=== PATIENT | female | born 1935 | race Caucasian/White ===

== ENCOUNTER 2018-02-17 09:09 | Inpatient (IN) | payer MEDICARE, MEDICAID ==
[2018-02-17] MEDS ORDERED: Albuterol Sulfate 2.5 mg/0.5 ml Neb ONE (09:31)
[2018-02-17] MEDS ORDERED: Albuterol Sulfate 2.5 mg/3 ml Neb ONE (09:31)
[2018-02-17 09:45] LABS: #Lymphocytes 1.7 thou/uL (1.20-3.40); #Monocytes 0.8 thou/uL (0.11-0.59); #Neutrophils 10.4 thou/uL (1.40-6.50); %Basophils 0.1 % (0.0-1.0); %Eosinophils 0.1 % (0.0-10.0); %Lymphocytes 13.4 % (21.0-51.0); %Neutrophils 80.5 % (42.0-75.0); Mean Corpuscular HGB CONC 32.4 g/dL (32.0-36.0); Mean Corpuscular Hemoglobin 27.5 pg (27.0-31.0); Mean Corpuscular Volume 84.7 fL (78.0-98.0); Mean Platelet Volume 6.4 fL (7.4-10.4); Platelet Count 261 thou/uL (130-400); Red Blood Cell (RBC) Count 4.74 mill/uL (4.20-5.40); White Blood Cell (WBC) Count 12.9 thou/uL (4.8-10.8)
[2018-02-17 10:08] LABS: ALT (SGPT) 11 U/L (8-55); AST (SGOT) 17 U/L (5-34); Albumin 4.2 g/dL (3.4-4.8); Alkaline Phosphatase 97 U/L (40-150); Anion Gap 17 mmol/L (10-20); BUN (Urea Nitrogen) 17 mg/dL (9.8-20.1); Bilirubin, Total 0.5 mg/dL (0.2-1.2); Calc. Creatinine Clearance 0 mL/min (70-130); Calcium 9.6 mg/dL (7.8-10.44); Carbon Dioxide 26 mmol/L (23-31); Chloride 100 mmol/L (98-107); Estimated GFR-MDRD 48; Globulin 3.5 g/dL (2.4-3.5); Glucose 129 mg/dL (83-110); Potassium 4.4 mmol/L (3.5-5.1); Protein, Total 7.7 g/dL (6.0-8.3); Sodium 139 mmol/L (136-145)
[2018-02-17 10:24] LABS: Bilirubin Negative (Negative); Blood, Urine Small (Negative); Clarity TURBID (Clear); Glucose, Urine (Dipstick) Negative (Negative); Leukocyte Large (Negative); Nitrite Positive (Negative); Protein, Urine (Dipstick) 30 mg/dL (Neg-Trace); Specific Gravity, Urine 1.014 (1.002-1.036); Urobilinogen 0.2 mg/dL (0.2-1.0)
[2018-02-17 10:25] LABS: Bacteria/HPF 1+ HPF (None Seen); Hyaline Casts/LPF 0-3 HYALINE CAST LPF (0-3 Hyaline); Squamous Epithelial None Seen HPF (0-3)
--- NOTE | 2018-02-17 11:52 | RAD ---
CHEST 1 VIEW: Date: 02/17/18 HISTORY: Weakness and low O2 sats. COMPARISON: Chest radiograph dated 12/12/14. FINDINGS: There are air space opacities in both lower lobes, somewhat linear in nature. No pneumothorax. Mild b lunting of both lateral costophrenic sulci, likely sequelae of the linear markings in both lung bases . Cardiac silhouette and mediastinal contours are within normal limits. Multiple calcified granulomas. IMPRESSION: Linear opacities both lower lobes suggesting atelectatic change. No acute intrathoracic abnormality. POS: [facility]
[2018-02-17] MEDS ORDERED: cefTRIAXone\\ROCEPHIN 1 GM VIAL ONE (12:34)
[2018-02-18] MEDS: Acetaminophen 325 MG TAB PO PRN (05:58)
[2018-02-18 06:44] LABS: #Lymphocytes 1.5 thou/uL (1.20-3.40); #Monocytes 0.7 thou/uL (0.11-0.59); #Neutrophils 9.7 thou/uL (1.40-6.50); %Basophils 0.1 % (0.0-1.0); %Eosinophils 0.1 % (0.0-10.0); %Lymphocytes 12.5 % (21.0-51.0); %Monocytes 5.8 % (0.0-10.0); %Neutrophils 81.5 % (42.0-75.0); Hemoglobin 11.5 g/dL (12.0-16.0); Mean Corpuscular HGB CONC 31.3 g/dL (32.0-36.0); Mean Corpuscular Hemoglobin 26.8 pg (27.0-31.0); Mean Corpuscular Volume 85.7 fL (78.0-98.0); Platelet Count 235 thou/uL (130-400); RBC Distribution Width 12.1 % (11.5-14.5); White Blood Cell (WBC) Count 11.9 thou/uL (4.8-10.8)
[2018-02-18] MEDS ORDERED: Ibuprofen 200 MG TAB PO PRN (06:48)
[2018-02-18] MEDS ORDERED: Acetaminophen 325 MG TAB PO PRN (06:48)
[2018-02-18 06:53] LABS: Anion Gap 15 mmol/L (10-20); BUN (Urea Nitrogen) 16 mg/dL (9.8-20.1); Calc. Creatinine Clearance 41 mL/min (70-130); Carbon Dioxide 24 mmol/L (23-31); Chloride 101 mmol/L (98-107); Estimated GFR-MDRD 63; Glucose 72 mg/dL (83-110); Potassium 4.3 mmol/L (3.5-5.1); Sodium 136 mmol/L (136-145)
[2018-02-18] MEDS ORDERED: HYDROXYZINE HCL 25 MG PO SCH (09:00)
[2018-02-18] MEDS ORDERED: Amlodipine 10 MG TAB PO SCH (09:00)
[2018-02-18] MEDS ORDERED: Spiriva 18 MCG CAP (Box of 5 Caps) INH SCH (09:00)
[2018-02-18] MEDS ORDERED: Prevnar 13-Val Conj/PF 0.5 ML SYRINGE IM ONE (09:00)
[2018-02-18] MEDS: Montelukast Sodium 10 mg Tablet PO SCH (09:01)
[2018-02-18] MEDS: guaiFENesin ER 600 MG TAB PO SCH ×2 (09:02→20:13)
[2018-02-18] MEDS: Amlodipine 5 MG TAB PO SCH (09:03)
[2018-02-18] MEDS: hydrOXYzine 25 MG TAB PO SCH (09:04)
[2018-02-18] MEDS: OLANZapine 5 MG TAB PO SCH (09:09)
[2018-02-18] MEDS: Enoxaparin Sodium 30 MG/0.3 ML SYRINGE SC SCH (09:12)
[2018-02-18] MEDS: Donepezil HCl 5 MG TAB PO SCH (09:16)
[2018-02-18] MEDS ORDERED: PROVENTIL INHALER 6.7 G (200 INHALATIONS) INH PRN (10:37)
[2018-02-18] MEDS: Ipratropium Bromide 2.5 ml Neb NEB SCH ×2 (11:07→17:21)
--- NOTE | 2018-02-18 12:48 | PDOC.PN ---
- Subjective Encounter Start Date: 02/18/18 Encounter Start Time: 10:40 Patient denies complaint. Daughter is in the room. She indicates patient is typically more conversant. Not back to baseline yet. Reports the patient has had a slight, wet cough. - Objective Resuscitation Status - Order Detail: 02/17/18 13:53 Resuscitation Status Routine Resuscitation Status: FULL: Full Resuscitation Vital Signs & Weight: Vital Signs (12 hours) Temp Pulse Resp BP BP Pulse Ox 02/18/18 11:07 83 16 92 L 02/18/18 11:00 97.4 F L 78 18 130/69 90 L 02/18/18 09:03 83 123/72 02/18/18 07:27 98.5 F 83 18 123/72 92 L 02/18/18 04:00 100.4 F H 93 18 137/68 93 L Weight Weight 113 lb 9 oz I&O: 02/17/18 02/18/18 02/19/18 06:59 06:59 06:59 Intake Total 120 Balance 120 Result Diagrams: 02/18/18 05:45 02/18/18 05:45 Phys Exam - Physical Examination Constitutional: NAD Respiratory: no wheezing, no rales, no rhonchi, clear to auscultation bilateral Cardiovascular: RRR, no significant murmur, no rub Gastrointestinal: soft, non-tender, no distention, positive bowel sounds Musculoskeletal: no edema Neurological: non-focal Dx/Plan (1) E. coli UTI Code(s): N39.0 - URINARY TRACT INFECTION, SITE NOT SPECIFIED; B96.20 - UNSP ESCHERICHIA COLI THE CAUSE OF DISEASES CLASSD ELSWHR Status: Acute Comment: Continue Rocephin. Follow up cultures. (2) Acute metabolic encephalopathy Code(s): G93.41 - METABOLIC ENCEPHALOPATHY Status: Acute Comment: Secondary to infection. (3) Acute and chronic respiratory failure with hypoxia Code(s): J96.21 - ACUTE AND CHRONIC RESPIRATORY FAILURE WITH HYPOXIA Status: Resolved (4) COPD (chronic obstructive pulmonary disease) Status: Chronic Comment: Continue nebs. Has modest cough. No evidence of pneumonia. Mild atelectasis on CXR. (5) Dementia Code(s): F03.90 - UNSPECIFIED DEMENTIA WITHOUT BEHAVIORAL DISTURBANCE Status: Chronic (6) HTN (hypertension) Code(s): I10 - ESSENTIAL (PRIMARY) HYPERTENSION Status: Chronic - Plan * Continue abx and follow up cultures. * Add mucinex for cough. * Determine course of treatment tomorrow when culture results known. * Continue nebs, inhalers. * Does not appear to need steroids.
--- NOTE | 2018-02-18 13:20 | HP ---
CHIEF COMPLAINT: Weak and dizzy. HISTORY OF PRESENT ILLNESS: This patient is an 82-year-old female with a history of dementia who lives at the [facility]. The patient has a history of some COPD and is oxygen dependent. The patient was brought into the Emergency Department by EMS. Apparently, the patient was showing some weakness and apparently maybe some lethargy at the nursing facility and was noted to have hypoxia with O2 sats at 88% to 89% on evaluation by EMS. The patient was subsequently brought to the Emergency Department. En route, she was noted to have a temperature of 100.9 and was given some Tylenol at that time. The patient is unable to give any additional history. REVIEW OF SYSTEMS: Not obtainable given the patient's dementia. PAST MEDICAL HISTORY: Notable for COPD, Alzheimer's dementia, hypertension, irritable bowel syndrome, and hyperlipidemia. PAST SURGICAL HISTORY: Lap jelly, wrist surgery, and bilateral tubal ligation. PSYCHIATRIC HISTORY: Anxiety, depression. FAMILY HISTORY: Not known. SOCIAL HISTORY: The patient is a nonsmoker, nondrinker. Records indicated next of kin is the child. ALLERGIES: HAZELNUTS, PENICILLIN. MEDICATIONS: DuoNeb, guaifenesin, albuterol, Spiriva, Breo Ellipta, hydroxyzine 50 mg daily p.r.n., Zyprexa 5 mg daily, vitamin C 500 mg daily, multivitamin one daily, aspirin 81 mg daily, montelukast 10 mg daily, hydroxyzine 25 mg daily, donepezil 10 mg daily, amlodipine 5 mg daily, simvastatin 20 mg at bedtime, Zoloft 150 daily, and Namenda 10 mg p.o. b.i.d. PHYSICAL EXAMINATION: VITAL SIGNS: Temperature is 99.2, pulse 77, respirations 16, O2 saturation 93% on 2 L nasal cannula, and BP 144/64. GENERAL APPEARANCE: Age-appropriate female. She is in no distress. She is confused and unable to give any significant subjective history. HEENT: Pupils are reactive. She has no OP lesions. HEART: Regular rate and rhythm without murmurs, gallops, or rubs. LUNGS: Clear to auscultation bilaterally with good chest wall expansion and air exchange. NECK: Soft, supple, symmetric with no lymphadenopathy. ABDOMEN: Soft, nontender, and nondistended. Positive bowel sounds. No masses. No organomegaly. EXTREMITIES: Warm and dry with no cyanosis, clubbing, or edema. NEUROLOGIC: The patient appears to move all extremities spontaneously with no focal deficits. PSYCH: The patient has no behavioral disturbance at this time. LABORATORY DATA: White count 12.9, hemoglobin 13.0, and platelets 261. Sodium 139, potassium 4.4, chloride 100, CO2 is 26, BUN 17, creatinine is 1.09, glucose 129, lactic acid 1.2, calcium 9.6, AST 17, ALT 11. Troponin 0.01. Albumin 4.2. Urinalysis shows trace ketones, small blood, positive nitrites, large leukocyte esterase, greater than 50 white cells, 1+ bacteria. Flu screen is negative. Chest x-ray shows some atelectatic changes in both lower lobes. IMPRESSION AND PLAN: 1. Acute on chronic hypoxic respiratory failure likely due to the underlying infection. The patient has had increased supplemental oxygen, appears to be stabilizing. 2. Urinary tract infection. Follow up cultures. Continue with broad-spectrum antibiotic including, at this point, Rocephin. 3. Chronic obstructive pulmonary disease. We will continue with nebulizer treatments and inhalers as possible along with the montelukast. 4. Alzheimer's dementia. Continue with the Namenda and Aricept, although it is probably too late for them to be terribly helpful in the course of her disease. 5. Hypertension. Continue with her Norvasc. 6. Hyperlipidemia. Continue with the simvastatin. Job ID: [id number]
[2018-02-18] MEDS: cefTRIAXone\\ROCEPHIN 1 GM in Sodium Chloride 0.9% 100 ML IVPB SCH (13:46)
[2018-02-18] MEDS: Atorvastatin Calcium 10 MG TAB PO SCH (20:13)
[2018-02-18] MEDS: guaiFENesin 200 MG TAB PO SCH (20:13)
[2018-02-18] MEDS ORDERED: Simvastatin 20 MG TAB PO SCH (21:00)
[2018-02-19] MEDS: Acetaminophen 325 MG TAB PO PRN (01:35)
[2018-02-19] MEDS: Ipratropium Bromide 2.5 ml Neb NEB SCH ×5 (02:18→23:58)
[2018-02-19] MEDS: Donepezil HCl 5 MG TAB PO SCH (09:16)
[2018-02-19] MEDS: Montelukast Sodium 10 mg Tablet PO SCH (09:17)
[2018-02-19] MEDS: hydrOXYzine 25 MG TAB PO SCH (09:19)
[2018-02-19] MEDS: Amlodipine 5 MG TAB PO SCH (09:19)
[2018-02-19] MEDS: guaiFENesin ER 600 MG TAB PO SCH ×2 (09:19→19:52)
[2018-02-19] MEDS: Enoxaparin Sodium 30 MG/0.3 ML SYRINGE SC SCH (09:27)
[2018-02-19] MEDS: OLANZapine 5 MG TAB PO SCH ×2 (09:27→19:52)
[2018-02-19] MEDS: guaiFENesin 200 MG TAB PO SCH ×2 (10:07→19:52)
[2018-02-19] MEDS: cefTRIAXone\\ROCEPHIN 1 GM in Sodium Chloride 0.9% 100 ML IVPB SCH (12:01)
--- NOTE | 2018-02-19 16:05 | RAD ---
CHSET ONE VIEW: HISTORY: Cough and fever. COMPARISON: Radiograph from 02/17/2018 FINDINGS: The lungs are hyperinflated. No pneumothorax. No effusion. There are multiple mid thoracic spine small compression deformities. IMPRESSION: 1. Chronic changes. 2. No acute intrathoracic abnormality. 3. No obstructive pulmonary disease. POS: [facility]
--- NOTE | 2018-02-19 16:07 | CT ---
CT ABDOMEN AND PELVIS WITHOUT CONTRAST STONE PROTOCOL: Date: 02/19/18 HISTORY: Abnormal urinalysis, fever, dementia. COMPARISON: CT abdomen and pelvis dated 12/13/15. FINDINGS: There are some subtle left basilar air space opacities, concerning for possible infection. There is a telectasis in the left lower lobe. Small left effusion. No hydroureteronephrosis or nephroureterolithiasis. No secondary evidence of a recently passed stone. No dilated loops of large or small bowel. Moderate diverticular disease sigmoid colon without active current inflammation. Noncontrast evaluation of the liver, spleen, and adrenal glands are relatively unremarkable. Prior ch olecystectomy. Aorta is mildly ectatic without aneurysmal dilatation. Bones are osteopenic. Moderate dextroscoliosis lumbar spine. IMPRESSION: 1. No nephroureterolithiasis or hydroureteronephrosis. No secondary evidence of recently passed ston e. 2. Some small left effusion with basilar opacity, concerning for early bronchopneumonia. 3. Possibility of left pelvic side wall lymphocele. POS: [facility]
--- NOTE | 2018-02-19 16:26 | PRG ---
DATE OF SERVICE: 02/19/2018 SUBJECTIVE: The patient states she does not feel too badly today. She has no specific complaints. OBJECTIVE: VITAL SIGNS: Temperature 97.8, pulse 75, respirations 18, O2 saturation 94% on 2 L nasal cannula, BP 106/62. GENERAL APPEARANCE: Age-appropriate female, in no distress. She is awake, alert, oriented, pleasant, and cooperative. HEART: Regular without significant murmurs. LUNGS: Slightly diminished at the bases, but otherwise clear to auscultation bilaterally. ABDOMEN: Soft, nontender, and nondistended. Positive bowel sounds. No masses. No organomegaly. EXTREMITIES: Warm and dry with no cyanosis, clubbing, or edema. LABORATORY DATA: Urine culture is growing E coli. IMPRESSION AND PLAN: 1. Urinary tract infection with Escherichia coli. Do not seem to be many good p.o. options. We will go ahead and consult Dr. Hein to see if how aggressive we need to be in pursuing this with IV antibiotics. 2. Acute metabolic encephalopathy, appears to be improving, likely secondary to the urinary tract infection. 3. Acute on chronic respiratory hypoxic failure. She continues to have some low saturations on room air down to 89%. She does have some chronic obstructive pulmonary disease. She looks quite comfortable with this, this may be her baseline. We will get the walking program to get her up and moving. 4. Chronic obstructive pulmonary disease, chronic, relatively stable. Continue bronchodilators. 5. Dementia, modest, chronic, stable. 6. Hypertension, chronic, stable. Continue with her usual home medications. Job ID: [id number]
[2018-02-19] MEDS: Atorvastatin Calcium 10 MG TAB PO SCH (19:52)
--- NOTE | 2018-02-19 21:42 | CON ---
DATE OF CONSULTATION: 02/19/2018 REASON FOR CONSULTATION: Possible UTI. HISTORY OF PRESENT ILLNESS: This is an 82-year-old female with history of COPD and dementia, who is a resident of a group home, who was admitted with lethargy, hypoxemia, and low-grade temperature elevation with [id number] neutrophilia and abnormal urinalysis. The patient has been given inhalers, ceftriaxone, enoxaparin, has had one temperature elevation of 100.4, but now she has been afebrile of late. Ms. Gan is awake, but she is unable to provide a reliable information. According to the nurse, she has had no diarrhea and no pain. She has been coughing intermittently and during the examination, she had quite a few episodes of coughing spells, which were productive of moderate amount of light yellowish sputum. PAST MEDICAL HISTORY: Includes dementia, COPD, hypertension, irritable bowel syndrome, and hyperlipidemia. PAST SURGICAL HISTORY: Laparoscopic cholecystectomy, wrist surgery, and tubal ligation. FAMILY HISTORY: Noncontributory. SOCIAL HISTORY: Never smoker. [facility] resident. ALLERGIES: PENICILLIN WITH RASH, NOT VERY CLEAR CHARACTERIZATION OF THIS ALLERGY. CURRENT MEDICATIONS: Have been reviewed above. She is also on Namenda and Singulair. PHYSICAL EXAMINATION: VITAL SIGNS: T-max 100.4 and now she has kind of defervesced since yesterday. Other vital signs not remarkable. O2 saturations are 94% on 2 L nasal cannula. SKIN: Not remarkable. The patient has a peripheral IV access. She is voiding in the toilet at bedside. HEENT: No lymphadenopathy. Ocular movements conjugate. Oral cavity, no remaining pala teeth. NECK: Supple. No jugular venous distention. LUNGS: Symmetric air entry with rhonchi in both lung bases with few crackles here and there, some expiratory wheezing here and there as well. HEART: S1 and S2. Regular rate. ABDOMEN: Soft, not distended or tender. No ascites. No bladder distention. EXTREMITIES: No joint inflammatory activity. Pulses 1+ in dorsalis pedis. She is able to move extremities, a little bit of rigidity in her movements. Plantar responses are flexor. No clonus. Pulses 1+ in dorsalis pedis. LABORATORY DATA: White cell count is 12.9 and 11.9, hemoglobin 13 and 11, MCV 84, platelets 261 with 80% neutrophils. Creatinine was 1.09, glucose 129. All other chemistries are within normal limits. Urinalysis is greater than 50 wbc's, 30 protein. Chest x-ray with linear opacities lower lobes indicating atelectatic change. The cultures revealed negative blood cultures. Influenza A and B negative. Urine culture with E coli with resistance to quinolones, Bactrim, and ampicillin and number of colonies greater than 100,000 CFUs per mL. ASSESSMENT: 1. Dementia either vascular dementia or Alzheimer's. 2. Chronic obstructive pulmonary disease. 3. Hypoxemia, low-grade temperature elevation, mild leukocytosis, lethargy. 4. Abnormal urinalysis. 5. Cough with sputum production. Some minor changes in chest x-ray. DISCUSSION: Differential diagnosis includes viral respiratory tract infection, early pneumonia, or an invasive UTI. We will repeat a chest x-ray, submit respiratory virus PCR and check a CT stone protocol to rule out a complicated UTI and then go from there. As usual, urinary tract findings in patients with dementia are difficult to interpret. We cannot medically assume that they are always the culprit behind the events that lead to admissions in these patients. Job ID: [id number]
[2018-02-20] MEDS: Ipratropium Bromide 2.5 ml Neb NEB SCH ×3 (07:28→19:10)
[2018-02-20] MEDS: Montelukast Sodium 10 mg Tablet PO SCH (08:44)
[2018-02-20] MEDS: Amlodipine 5 MG TAB PO SCH (08:44)
[2018-02-20] MEDS: guaiFENesin 200 MG TAB PO SCH ×2 (08:44→20:11)
[2018-02-20] MEDS: hydrOXYzine 25 MG TAB PO SCH (08:45)
[2018-02-20] MEDS: guaiFENesin ER 600 MG TAB PO SCH ×2 (08:45→20:12)
[2018-02-20] MEDS: Donepezil HCl 5 MG TAB PO SCH (08:45)
[2018-02-20] MEDS: Enoxaparin Sodium 30 MG/0.3 ML SYRINGE SC SCH (08:47)
[2018-02-20] MEDS: OLANZapine 5 MG TAB PO SCH (08:47)
--- NOTE | 2018-02-20 10:21 | PDOC.PN ---
- Subjective Encounter Start Date: 02/20/18 Encounter Start Time: 11:45 Subjective: Patient sleeping, arousable but falls right back to sleep. Still -: requiring oxygen. - Objective Resuscitation Status - Order Detail: 02/17/18 13:53 Resuscitation Status Routine Resuscitation Status: FULL: Full Resuscitation MAR Reviewed: Yes Vital Signs & Weight: Vital Signs (12 hours) Temp Pulse Resp BP Pulse Ox 02/20/18 08:44 88 02/20/18 08:00 98.1 F 88 20 149/73 H 90 L 02/20/18 07:28 89 18 96 02/19/18 23:58 84 18 96 Weight Weight 113 lb 9 oz I&O: 02/19/18 02/20/18 02/21/18 06:59 06:59 06:59 Intake Total 1360 1180 240 Balance 1360 1180 240 Result Diagrams: 02/18/18 05:45 02/18/18 05:45 Phys Exam - Physical Examination Constitutional: NAD HEENT: moist MMs Respiratory: no wheezing, no rales, no rhonchi Cardiovascular: RRR, no significant murmur Gastrointestinal: soft, positive bowel sounds Neurological: non-focal, moves all 4 limbs Deviation from normal: oriented to person only, very sleepy Dx/Plan (1) Acute metabolic encephalopathy Code(s): G93.41 - METABOLIC ENCEPHALOPATHY Status: Acute Comment: Secondary to infection. (2) E. coli UTI Code(s): N39.0 - URINARY TRACT INFECTION, SITE NOT SPECIFIED; B96.20 - UNSP ESCHERICHIA COLI THE CAUSE OF DISEASES CLASSD ELSWHR Status: Acute Comment: Resistent E. coli in urine, Dr. Hein consulted (3) Acute and chronic respiratory failure with hypoxia Code(s): J96.21 - ACUTE AND CHRONIC RESPIRATORY FAILURE WITH HYPOXIA Status: Acute Comment: On O2 via [place], CT with possible pneumonia (4) COPD (chronic obstructive pulmonary disease) Status: Chronic Comment: Continue nebs. Has modest cough. No evidence of pneumonia. Mild atelectasis on CXR. - Plan cont current plan of care, continue antibiotics, DVT proph w/lovenox Antibiotic plan per Dr. Hein * . - Discharge Day Encounter end time: 12:00 Pulmonology Consult: Meds - Medications MAR Reviewed: Yes Medications: Current Medications Acetaminophen (Tylenol) 650 mg PO Q4H PRN PRN Reason: Headache/Fever/Mild Pain (1-3) Last Admin: 02/19/18 01:35 Dose: 650 mg Acetaminophen (Tylenol) 650 mg PO Q4H PRN PRN Reason: Pain Albuterol Sulfate (Proventil Hfa) 2 puff INH Q4H PRN PRN Reason: Wheezing Albuterol/Ipratropium (Duoneb) 3 ml NEB Q4H PRN PRN Reason: SOB &/or Wheezing Last Admin: 02/19/18 02:14 Dose: 3 ml Amlodipine Besylate (Norvasc) 5 mg PO DAILY [facility] Last Admin: 02/20/18 08:44 Dose: 5 mg Aspirin (Aspirin Chewable) 81 mg PO DAILY [facility] Last Admin: 02/20/18 08:47 Dose: 81 mg Atorvastatin Calcium (Lipitor) 10 mg PO HS [facility] Last Admin: 02/19/18 19:52 Dose: 10 mg Donepezil HCl (Aricept) 10 mg PO DAILY [facility] Last Admin: 02/20/18 08:45 Dose: 10 mg Enoxaparin Sodium (Lovenox) 30 mg SC 0900 [facility] Last Admin: 02/20/18 08:47 Dose: 30 mg Guaifenesin (Mucinex) 300 mg PO BID [facility] Last Admin: 02/20/18 08:45 Dose: 300 mg Guaifenesin (Organ-I Nr) 400 mg PO BID [facility] Last Admin: 02/20/18 08:44 Dose: 400 mg Hydroxyzine HCl (Atarax) 25 mg PO DAILY [facility] Last Admin: 02/20/18 08:45 Dose: 25 mg Ceftriaxone Sodium 1 gm/ (Sodium Chloride) 100 mls @ 200 mls/hr IVPB Q24HR [facility] Last Admin: 02/19/18 12:01 Dose: 100 mls Ibuprofen (Motrin) 200 mg PO BID PRN PRN Reason: pain/inflammation R wrist Ipratropium [place] (Atrovent) 2.5 ml NEB [id number] [facility] Last Admin: 02/20/18 07:28 Dose: 2.5 ml Memantine (Namenda) 10 mg PO BID [facility] Last Admin: 02/20/18 08:46 Dose: 10 mg Montelukast Sodium (Singulair) 10 mg PO DAILY [facility] Last Admin: 02/20/18 08:44 Dose: 10 mg Olanzapine (Zyprexa) 5 mg PO DAILY [facility] Last Admin: 02/20/18 08:47 Dose: 5 mg Sertraline HCl (Zoloft) 150 mg PO DAILY [facility] Last Admin: 02/20/18 08:46 Dose: 150 mg - Allergies Allergies/Adverse Reactions: Allergies Allergy/AdvReac Type Severity Reaction Status Date / Time hazelnut Allergy Verified 02/17/18 14:18 Penicillins Allergy Verified 02/17/18 13:52
[2018-02-20] MEDS: cefTRIAXone\\ROCEPHIN 1 GM in Sodium Chloride 0.9% 100 ML IVPB SCH (15:48)
--- NOTE | 2018-02-20 17:37 | PRG ---
DATE OF SERVICE: 02/20/2018 SUBJECTIVE: A little bit apathetic as usual and she is able to establish eye contact and answer some questions, but she does not have any sense of orientation at this point. OBJECTIVE: VITAL SIGNS: T-max 99.8. She is now afebrile. BP 130/70, pulse 79, and respirations 16. SKIN: Examination was normal. HEENT: Ocular movements conjugate. LUNGS: Coarse crackles in the right base. HEART: S1 and S2. Regular rate. ABDOMEN: Soft, not distended. No bladder distention. EXTREMITIES: Moves extremities equally. LABORATORY DATA: White cell count is 11.9, hemoglobin 11, and platelets 235. Respiratory virus PCR panel negative. Abdomen and pelvis CT with no hydronephrosis. Small left effusion and basilar opacity. ASSESSMENT AND DISCUSSION: Dementia with chronic obstructive pulmonary disease and hypoxemia, cough, sputum production, abdominal basilar findings in the CT. It appears more likely the patient has a respiratory tract infection, bacterial in nature. With focus, focus the treatment towards that diagnosis with eventual transition to oral doxycycline or quinolone for discharge planning doxycycline or minocycline for discharge planning. Job ID: [id number]
[2018-02-20] MEDS: Atorvastatin Calcium 10 MG TAB PO SCH (20:12)
[2018-02-20] MEDS: Acetaminophen 325 MG TAB PO PRN (20:12)
[2018-02-21] MEDS: Ipratropium Bromide 2.5 ml Neb NEB SCH ×4 (00:20→20:22)
--- NOTE | 2018-02-21 09:27 | PDOC.PN ---
- Subjective Encounter Start Date: 02/21/18 Encounter Start Time: 11:45 Subjective: Patient with some improvement in alertness. No complaints this morning. - Objective Resuscitation Status - Order Detail: 02/17/18 13:53 Resuscitation Status Routine Resuscitation Status: FULL: Full Resuscitation MAR Reviewed: Yes Vital Signs & Weight: Vital Signs (12 hours) Temp Pulse Resp BP Pulse Ox 02/21/18 08:00 97.1 F L 71 16 129/77 100 02/21/18 07:29 76 16 93 L 02/21/18 00:20 72 18 94 L Weight Weight 113 lb 9 oz I&O: 02/20/18 02/21/18 02/22/18 06:59 06:59 06:59 Intake Total 1180 680 Balance 1180 680 Result Diagrams: 02/18/18 05:45 02/18/18 05:45 Phys Exam - Physical Examination Constitutional: NAD HEENT: moist MMs Respiratory: no wheezing, no rales, no rhonchi Cardiovascular: RRR, no significant murmur Gastrointestinal: soft, positive bowel sounds Neurological: non-focal, moves all 4 limbs Psychiatric: normal affect Dx/Plan (1) Acute metabolic encephalopathy Code(s): G93.41 - METABOLIC ENCEPHALOPATHY Status: Acute Comment: Secondary to infection. (2) E. coli UTI Code(s): N39.0 - URINARY TRACT INFECTION, SITE NOT SPECIFIED; B96.20 - UNSP ESCHERICHIA COLI THE CAUSE OF DISEASES CLASSD ELSWHR Status: Acute Comment: Resistent E. coli in urine, Dr. Hein consulted (3) Acute and chronic respiratory failure with hypoxia Code(s): J96.21 - ACUTE AND CHRONIC RESPIRATORY FAILURE WITH HYPOXIA Status: Acute Comment: On O2 via [place], CT with possible pneumonia (4) COPD (chronic obstructive pulmonary disease) Status: Chronic Comment: Continue nebs. Has modest cough. No evidence of pneumonia. Mild atelectasis on CXR. - Plan cont current plan of care, continue antibiotics Aiming antibiotics at respiratory infection, plan to eventually -: transition to doxy or minocycline at discharge. * . - Discharge Day Encounter end time: 12:00 Pulmonology Consult: Meds - Medications MAR Reviewed: Yes Medications: Current Medications Acetaminophen (Tylenol) 650 mg PO Q4H PRN PRN Reason: Headache/Fever/Mild Pain (1-3) Last Admin: 02/20/18 20:12 Dose: 650 mg Acetaminophen (Tylenol) 650 mg PO Q4H PRN PRN Reason: Pain Albuterol Sulfate (Proventil Hfa) 2 puff INH Q4H PRN PRN Reason: Wheezing Albuterol/Ipratropium (Duoneb) 3 ml NEB Q4H PRN PRN Reason: SOB &/or Wheezing Last Admin: 02/19/18 02:14 Dose: 3 ml Amlodipine Besylate (Norvasc) 5 mg PO DAILY [facility] Last Admin: 02/20/18 08:44 Dose: 5 mg Aspirin (Aspirin Chewable) 81 mg PO DAILY [facility] Last Admin: 02/20/18 08:47 Dose: 81 mg Atorvastatin Calcium (Lipitor) 10 mg PO HS [facility] Last Admin: 02/20/18 20:12 Dose: 10 mg Donepezil HCl (Aricept) 10 mg PO DAILY [facility] Last Admin: 02/20/18 08:45 Dose: 10 mg Enoxaparin Sodium (Lovenox) 30 mg SC 0900 [facility] Last Admin: 02/20/18 08:47 Dose: 30 mg Guaifenesin (Mucinex) 300 mg PO BID [facility] Last Admin: 02/20/18 20:12 Dose: 300 mg Guaifenesin (Organ-I Nr) 400 mg PO BID [facility] Last Admin: 02/20/18 20:11 Dose: 400 mg Hydroxyzine HCl (Atarax) 25 mg PO DAILY [facility] Last Admin: 02/20/18 08:45 Dose: 25 mg Ceftriaxone Sodium 1 gm/ (Sodium Chloride) 100 mls @ 200 mls/hr IVPB Q24HR [facility] Last Admin: 02/20/18 15:48 Dose: 100 mls Ibuprofen (Motrin) 200 mg PO BID PRN PRN Reason: pain/inflammation R wrist Last Admin: 02/20/18 16:41 Dose: 200 mg Ipratropium [place] (Atrovent) 2.5 ml NEB [id number] [facility] Last Admin: 02/21/18 07:29 Dose: 2.5 ml Memantine (Namenda) 10 mg PO BID [facility] Last Admin: 02/20/18 20:12 Dose: 10 mg Montelukast Sodium (Singulair) 10 mg PO DAILY [facility] Last Admin: 02/20/18 08:44 Dose: 10 mg Olanzapine (Zyprexa) 5 mg PO DAILY [facility] Last Admin: 02/20/18 08:47 Dose: 5 mg Sertraline HCl (Zoloft) 150 mg PO DAILY [facility] Last Admin: 02/20/18 08:46 Dose: 150 mg - Allergies Allergies/Adverse Reactions: Allergies Allergy/AdvReac Type Severity Reaction Status Date / Time hazelnut Allergy Verified 02/17/18 14:18 Penicillins Allergy Verified 02/17/18 13:52
[2018-02-21] MEDS: Montelukast Sodium 10 mg Tablet PO SCH (09:31)
[2018-02-21] MEDS: guaiFENesin ER 600 MG TAB PO SCH ×2 (09:32→20:24)
[2018-02-21] MEDS: Amlodipine 5 MG TAB PO SCH (09:32)
[2018-02-21] MEDS: Donepezil HCl 5 MG TAB PO SCH (09:32)
[2018-02-21] MEDS: Enoxaparin Sodium 30 MG/0.3 ML SYRINGE SC SCH (09:33)
[2018-02-21] MEDS: guaiFENesin 200 MG TAB PO SCH ×2 (09:33→20:24)
[2018-02-21] MEDS: OLANZapine 5 MG TAB PO SCH (09:33)
[2018-02-21] MEDS: hydrOXYzine 25 MG TAB PO SCH (09:34)
[2018-02-21] MEDS: cefTRIAXone\\ROCEPHIN 1 GM in Sodium Chloride 0.9% 100 ML IVPB SCH (13:58)
[2018-02-21] MEDS ORDERED: cefTRIAXone\\ROCEPHIN 1 GM VIAL IM SCH ×2 (15:00→16:00)
[2018-02-21] MEDS ORDERED: Sterile Water 10 ML ONE (15:28)
[2018-02-21] MEDS ORDERED: Lidocaine 1% PF 5 ML VIAL FS SCH (16:00)
[2018-02-21] MEDS: Atorvastatin Calcium 10 MG TAB PO SCH (20:25)
[2018-02-22] MEDS: Ipratropium Bromide 2.5 ml Neb NEB SCH ×2 (00:44→11:01)
--- NOTE | 2018-02-22 07:48 | PDOC.PN ---
- Subjective Encounter Start Date: 02/22/18 Encounter Start Time: 10:30 Subjective: Patient back to baseline. No complaints. No SOB. Coughing improved. - Objective Resuscitation Status - Order Detail: 02/17/18 13:53 Resuscitation Status Routine Resuscitation Status: FULL: Full Resuscitation MAR Reviewed: Yes Vital Signs & Weight: Vital Signs (12 hours) Temp Pulse Resp BP Pulse Ox 02/22/18 04:00 98.6 F 76 18 125/73 92 L 02/22/18 00:44 82 16 02/22/18 00:00 99.1 F 81 18 148/74 H 92 L 02/21/18 20:00 98.5 F 84 18 129/69 93 L Weight Weight 113 lb 9 oz I&O: 02/21/18 02/22/18 02/23/18 06:59 06:59 06:59 Intake Total 680 480 Balance 680 480 Result Diagrams: 02/22/18 11:45 02/22/18 11:45 Phys Exam - Physical Examination Constitutional: NAD HEENT: moist MMs Respiratory: no wheezing, no rales, no rhonchi Cardiovascular: RRR, no significant murmur Gastrointestinal: soft, positive bowel sounds Neurological: non-focal, moves all 4 limbs Psychiatric: normal affect, A&O x 3 Dx/Plan (1) Acute metabolic encephalopathy Code(s): G93.41 - METABOLIC ENCEPHALOPATHY Status: Acute Comment: Secondary to infection. Improved. (2) E. coli UTI Code(s): N39.0 - URINARY TRACT INFECTION, SITE NOT SPECIFIED; B96.20 - UNSP ESCHERICHIA COLI THE CAUSE OF DISEASES CLASSD ELSWHR Status: Acute Comment: Resistent E. coli in urine, Dr. Hein consulted (3) Acute and chronic respiratory failure with hypoxia Code(s): J96.21 - ACUTE AND CHRONIC RESPIRATORY FAILURE WITH HYPOXIA Status: Acute Comment: On O2 via [place], CT with possible pneumonia (4) COPD (chronic obstructive pulmonary disease) Status: Chronic Comment: Continue nebs. Has modest cough. No evidence of pneumonia. Mild atelectasis on CXR. - Plan cont current plan of care, continue antibiotics, PT/OT Treating as pulmonary infection. Discussed with Dr. Hein and -: he recommended change to Doxycycline for oral abx. D/C back to -: NH. * . - Discharge Day Encounter end time: 10:45
[2018-02-22] MEDS: Enoxaparin Sodium 30 MG/0.3 ML SYRINGE SC SCH (09:18)
[2018-02-22] MEDS: Amlodipine 5 MG TAB PO SCH (09:18)
[2018-02-22] MEDS: Donepezil HCl 5 MG TAB PO SCH (09:18)
[2018-02-22] MEDS: guaiFENesin ER 600 MG TAB PO SCH (09:19)
[2018-02-22] MEDS: guaiFENesin 200 MG TAB PO SCH (09:19)
[2018-02-22] MEDS: OLANZapine 5 MG TAB PO SCH (09:20)
[2018-02-22] MEDS: Montelukast Sodium 10 mg Tablet PO SCH (09:20)
[2018-02-22] MEDS: hydrOXYzine 25 MG TAB PO SCH (09:20)
[2018-02-22 10:50] VITALS: BP 122/74; TEMP 97.1
[2018-02-22 11:54] LABS: #Eosinphils 0.2 thou/uL (0.0-0.7); #Lymphocytes 1.5 thou/uL (1.20-3.40); #Monocytes 0.5 thou/uL (0.11-0.59); #Neutrophils 2.9 thou/uL (1.40-6.50); %Basophils 0.4 % (0.0-1.0); %Eosinophils 3.8 % (0.0-10.0); %Lymphocytes 28.9 % (21.0-51.0); %Monocytes 9.5 % (0.0-10.0); %Neutrophils 57.4 % (42.0-75.0); Hemoglobin 12.1 g/dL (12.0-16.0); Mean Corpuscular HGB CONC 32.5 g/dL (32.0-36.0); Mean Corpuscular Hemoglobin 27.8 pg (27.0-31.0); Mean Corpuscular Volume 85.5 fL (78.0-98.0); Mean Platelet Volume 6.4 fL (7.4-10.4); Platelet Count 340 thou/uL (130-400); RBC Distribution Width 11.9 % (11.5-14.5); Red Blood Cell (RBC) Count 4.35 mill/uL (4.20-5.40)
[2018-02-22 12:16] LABS: Anion Gap 13 mmol/L (10-20); BUN (Urea Nitrogen) 11 mg/dL (9.8-20.1); Calc. Creatinine Clearance 44 mL/min (70-130); Calcium 9.2 mg/dL (7.8-10.44); Carbon Dioxide 24 mmol/L (23-31); Chloride 103 mmol/L (98-107); Estimated GFR-MDRD 68; Glucose 87 mg/dL (83-110); Potassium 3.9 mmol/L (3.5-5.1); Sodium 136 mmol/L (136-145)
[2018-02-22] MEDS ORDERED: Doxycycline 100 MG CAP PO SCH (21:00)
--- NOTE | 2018-02-23 02:21 | DIS ---
DATE OF ADMISSION: 02/17/2018 DATE OF DISCHARGE: 02/22/2018 PRIMARY CARE PHYSICIAN: Stacey Zaragoza. REASON FOR ADMISSION: Acute on chronic respiratory failure. DIAGNOSES AT DISCHARGE: 1. Acute on chronic respiratory failure with hypoxia, improved back to baseline. 2. Bacterial lower respiratory tract infection. 3. Multidrug resistant Escherichia coli colonized in the urine. 4. Acute metabolic encephalopathy, resolved. 5. Chronic obstructive pulmonary disease exacerbation. 6. Alzheimer's dementia. 7. Hypertension. 8. Hyperlipidemia. PROCEDURES: CT scan of the abdomen and pelvis without contrast. Stone protocol showing no nephrolithiasis or hydroureteronephrosis, but a small left pleural effusion with basilar opacity concerning for early bronchopneumonia and possible left pelvic sidewall lymphocele. CONSULTATIONS: Infectious Disease, Avery Hein MD. SUMMARY OF HOSPITAL COURSE: This is an 82-year-old female with a history of dementia, living a [place], also has a history of COPD, oxygen dependent. The patient had some weakness and lethargy. [facility] noted that her O2 sats dropping into the mid to high 80s on her regular O2. In the ER, she was noted to have a temperature of 100.9. Chest x-ray showed initially showed some atelectatic changes and urinalysis showed some nitrites and large leukocyte esterase. The patient was put on antibiotics and given respiratory support. Her urine culture grew back multidrug resistant E coli, so Dr. Hein was consulted. He ordered a CT of the abdomen and pelvis, which showed above results. Upon reviewing all of her data, Dr. Hein determined that the E coli was most likely colonization and that her infection was localized to the lungs. The patient was given Rocephin with improvement in all of her symptoms and was able to be decreased back to her baseline oxygen requirement. She was back to her baseline mental status on the day of discharge and so was switched to doxycycline. DISCHARGE MANAGEMENT: Discharged back to skilled nursing. ACTIVITY: As tolerated. DIET: Healthy heart diet. FOLLOWUP: Follow up with primary care physician in the next week. MEDICATIONS: 1. Doxycycline 100 mg twice a day for 7 more days. 2. Resume all home medications. DuoNeb as needed. 3. Guaifenesin ER 300 mg twice a day. 4. Spiriva 2 puffs inhaled daily. 5. Breo Ellipta 200/25 one inhalation daily. 6. Zofran as needed. 7. Acetaminophen as needed. 8. Milk of magnesia as needed. 9. Maalox as needed. 10. Guaifenesin ER 600 mg twice a day as needed. 11. Benzonatate 200 mg every 8 hours as needed for cough. 12. Imodium 80 as needed. 13. Ibuprofen as needed. 14. Docusate sodium as needed. 15. Hydroxyzine as needed. 16. Zyprexa 5 mg daily. 17. Vitamin C 500 mg daily. 18. Multivitamin daily. 19. Aspirin 81 mg daily. 20. Montelukast 10 mg daily. 21. Hydroxyzine 25 mg daily. 22. Donepezil 10 mg daily. 23. Amlodipine 5 mg daily. 24. Simvastatin 20 mg at night. 25. Zoloft 150 mg daily. 26. Namenda 10 mg daily. 27. The patient is to continue her home oxygen. Job ID: [id number]
--- NOTE | 2018-02-23 15:09 | PQF ---
BRIANNA FAJARDO RYAN ANDREW MD [id number] CLINICAL DOCUMENTATION CLARIFICATION FORM: POST DISCHARGE Please exercise your independent, professional judgment in responding to the clarification form. Clinical indicators are provided on the bottom of this form for your review Please check appropriate box(es): [ X ] Sepsis due to: (Pna, UTI, gangrenous gall bladder, etc.) ____Pneumonia___ [ X ] with organ dysfunction [ ] without organ dysfunction [ ] Severe sepsis with acute organ dysfunction of: (Examples: respiratory failure, encephalopathy, acute kidney failure, other) [ ] Localized infection without sepsis [ ] Other diagnosis [ ] Unable to determine In addition, please specify: Present on Admission (POA): [ X ] Yes [ ] No [ ] Unable to determine Physician Signature: Date/Time: Present Clinical Indicators - Signs / Symptoms / Labs Results and Location in Medical Record X Altered mental status 02/18 PROG NOTE: acute metabolic encephalopathy X Fever or hypothermia (<96.8 F/36 C or > 100.4 F/38C) 02/17 H&P En route she was noted to have a temperature of 100.9 X Urosepsis 02/17 Urosepsis documented on admit order X Acute organ dysfunction/failure 02/17 H&P IMPRESSION: Acute on chronic hypoxic respiratory failure likely due to the underlying infection X WBC count (>12,000/mm^4 or <4000/mm^3 or 10% neuts, 10% bands) 02/17 LABS WBC 12.9 Present Risk Factors Results and Location in Medical Record X Infection 02/22 DS: Bacterial lower respiratory tract infection X Advancing Age Age 82 Present Treatments Results and Location in Medical Record X ID Consult 02/[address] Hein X IV Antibiotics broad spectrum 02/17 MAR IV Rocephin (This form is maintained as a part of the permanent medical record) 2014 [employer]. All Rights Reserved [email or web address] [phone] [email or web address]
--- NOTE | 2018-02-24 13:51 | EKG ---
Test Reason : Blood Pressure : / mmHG Vent. Rate : 095 BPM Atrial Rate : 095 BPM P-R Int : 132 ms QRS Dur : 074 ms QT Int : 552 ms P-R-T Axes : 077 052 076 degrees QTc Int : 693 ms Normal sinus rhythm Possible Left atrial enlargement Nonspecific T wave abnormality Prolonged QT Abnormal ECG Confirmed by ANASTASIA TAYLOR D.O. ([id number]), department editor ROSANNE DEVI ([id number]) on 02/24/2018 1:51:11 PM Referred By: CLAUDIA Confirmed By:ANASTASIA TAYLOR D.O.
== END 2018-02-22 12:55 | DRG 871 ==
LOC: ERS 09:09 → T4-B 12:42
PROVIDERS: ADMIT Internal Medicine; ATTEND Internal Medicine
DX: A41.9 Sepsis, unspecified organism (principal); J96.21 Acute and chronic respiratory failure with hypoxia; G93.41 Metabolic encephalopathy; J18.9 Pneumonia, unspecified organism; J44.0 Chronic obstructive pulmonary disease with (acute) lower respiratory infection; J44.1 Chronic obstructive pulmonary disease with (acute) exacerbation; R65.20 Severe sepsis without septic shock; G30.9 Alzheimer's disease, unspecified; F02.80 Dementia in other diseases classified elsewhere, unspecified severity, without behavioral disturbance, psychotic disturbance, mood disturbance, and anxiety; I10 Essential (primary) hypertension; E78.5 Hyperlipidemia, unspecified; Z16.30 Resistance to unspecified antimicrobial drugs; Z22.39 Carrier of other specified bacterial diseases; Z99.81 Dependence on supplemental oxygen; F41.8 Other specified anxiety disorders; Z79.82 Long term (current) use of aspirin; Z88.0 Allergy status to penicillin
CPT/HCPCS: 36415; 51701; 71045; 74176; 80048; 80053; 81003; 81015; 83605; 83880; 84484; 85025; 87040; 87077; 87086; 87186; 87633; 87804; 93005; 94640; 96361; 96365; A4216; A4353; J0696; J1650; J2001; J7050; J7611; J7620

== ENCOUNTER 2020-05-14 09:05 | Outpatient (CLI) | payer MEDICARE, MEDICAID | END 2020-05-14 09:06 | disposition home or self-care (01) | LOC: BICRAD 09:05 | PROVIDERS: ATTEND Internal Medicine Pulmonary Disease | DX: R06.00 Dyspnea, unspecified (principal) | CPT/HCPCS: 71046 ==

== ENCOUNTER 2020-10-20 17:58 | Emergency (ER) | payer OTHER, MEDICARE ==
[2020-10-20 18:26] LABS: #Eosinphils 0.2 thou/uL (0.0-0.7); #Lymphocytes 1.4 thou/uL (1.20-3.40); #Monocytes 0.9 thou/uL (0.11-0.59); #Neutrophils 7.6 thou/uL (1.40-6.50); %Basophils 0.4 % (0.0-1.0); %Neutrophils 74.5 % (42.0-75.0); Hemoglobin 12.4 g/dL (12.0-16.0); Mean Corpuscular HGB CONC 34.5 g/dL (32.0-36.0); Mean Corpuscular Hemoglobin 30.7 pg (27.0-31.0); Mean Corpuscular Volume 88.9 fL (78.0-98.0); Mean Platelet Volume 6.3 fL (7.4-10.4); Platelet Count 310 thou/uL (130-400); RBC Distribution Width 11.6 % (11.5-14.5); Red Blood Cell (RBC) Count 4.03 mill/uL (4.20-5.40); White Blood Cell (WBC) Count 10.1 thou/uL (4.8-10.8)
[2020-10-20 18:36] LABS: PTT 31.7 sec (22.9-36.1); Prothrombin Time 13.1 sec (12.0-14.7)
[2020-10-20 18:42] LABS: Anion Gap 13 mmol/L (10-20); BUN (Urea Nitrogen) 16 mg/dL (9.8-20.1); Calc. Creatinine Clearance 0 mL/min (70-130); Calcium 9.3 mg/dL (7.8-10.44); Carbon Dioxide 24 mmol/L (23-31); Chloride 104 mmol/L (98-107); Glucose 101 mg/dL (83-110); Potassium 4.1 mmol/L (3.5-5.1); Sodium 137 mmol/L (136-145)
== END 2020-10-20 21:45 | disposition home or self-care (01) ==
LOC: ERS 17:58
DX: L22 Diaper dermatitis (principal); F03.90 Unspecified dementia, unspecified severity, without behavioral disturbance, psychotic disturbance, mood disturbance, and anxiety; J44.9 Chronic obstructive pulmonary disease, unspecified; I10 Essential (primary) hypertension; Z79.82 Long term (current) use of aspirin; Z79.899 Other long term (current) drug therapy
CPT/HCPCS: 36415; 76856; 80048; 85025; 85610; 85730

== ENCOUNTER 2021-12-09 19:27 | Emergency (ER) | payer MEDICARE, MEDICAID ==
[2021-12-09 20:29] LABS: #Eosinphils 0.2 thou/uL (0.0-0.7); #Lymphocytes 2.2 thou/uL (1.20-3.40); #Monocytes 0.8 thou/uL (0.11-0.59); #Neutrophils 4.1 thou/uL (1.40-6.50); %Basophils 0.1 % (0.0-1.0); %Lymphocytes 30.2 % (21.0-51.0); %Monocytes 11.2 % (0.0-10.0); %Neutrophils 55.6 % (42.0-75.0); Hemoglobin 12.6 g/dL (12.0-16.0); Mean Corpuscular HGB CONC 32.5 g/dL (32.0-36.0); Mean Corpuscular Hemoglobin 29.1 pg (27.0-31.0); Mean Corpuscular Volume 89.6 fl (78.0-98.0); Mean Platelet Volume 6.9 fL (7.4-10.4); Platelet Count 287 thou/uL (130-400); RBC Distribution Width 11.6 % (11.5-14.5); Red Blood Cell (RBC) Count 4.33 mill/uL (4.20-5.40); White Blood Cell (WBC) Count 7.3 thou/uL (4.8-10.8)
[2021-12-09 20:51] LABS: ALT (SGPT) 13 U/L (8-55); AST (SGOT) 18 U/L (5-34); Albumin 3.8 g/dL (3.4-4.8); Alkaline Phosphatase 74 U/L (40-110); Anion Gap 13 mmol/L (10-20); BUN (Urea Nitrogen) 12 mg/dL (9.8-20.1); Bilirubin, Total 0.3 mg/dL (0.2-1.2); Calc. Creatinine Clearance 0 mL/min (70-130); Calcium 8.9 mg/dL (7.8-10.44); Carbon Dioxide 23 mmol/L (23-31); Chloride 102 mmol/L (98-107); Estimated GFR 72; Globulin 3.4 g/dL (2.4-3.5); Glucose 89 mg/dL (83-110); Potassium 4.1 mmol/L (3.5-5.1); Protein, Total 7.2 g/dL (5.8-8.1); Sodium 134 mmol/L (136-145)
[2021-12-09 21:34] LABS: Bacteria/HPF 2+ HPF (None Seen); Bilirubin Negative (Negative); Blood, Urine Negative (Negative); Clarity Clear (Clear); Glucose, Urine (Dipstick) Normal (Negative); Ketone, Urine Negative (Negative); Leukocyte 500 Leu/uL (Negative); Nitrite Negative (Negative); Protein, Urine (Dipstick) Negative (Neg-Trace); RBC/HPF None Seen HPF (0-3); Specific Gravity, Urine 1.004 (1.002-1.036); Squamous Epithelial None Seen HPF (0-3); Urobilinogen Normal mg/dL (Less than 2); WBC/HPF 21-50 HPF (0-3); pH, Urine 6.5 (5.0-9.0)
[2021-12-09 21:59] LABS: SARS-CoV-2 NAA Rapid Test Not Detected (NotDetected)
== END 2021-12-10 ==
LOC: ERS 19:27
DX: N39.0 Urinary tract infection, site not specified (principal); I10 Essential (primary) hypertension; J44.9 Chronic obstructive pulmonary disease, unspecified; E78.5 Hyperlipidemia, unspecified; Z79.899 Other long term (current) drug therapy; Z79.82 Long term (current) use of aspirin; Z20.822 Contact with and (suspected) exposure to COVID-19
CPT/HCPCS: 0240U; 71045; 80053; 83605; 85025; 87040; 36415; 51701; 81003; 81015; 96360

== ENCOUNTER 2022-04-02 19:13 | Observation (INO) | payer MEDICARE, MEDICAID ==
[2022-04-02 20:15] LABS: #Basophils 0.1 thou/uL (0.0-0.2); #Lymphocytes 1.2 thou/uL (1.20-3.40); #Monocytes 1.3 thou/uL (0.11-0.59); #Neutrophils 11.3 thou/uL (1.40-6.50); %Basophils 0.4 % (0.0-1.0); %Eosinophils 0.3 % (0.0-10.0); %Lymphocytes 8.9 % (21.0-51.0); %Neutrophils 81.3 % (42.0-75.0); Hemoglobin 13.3 g/dL (12.0-16.0); Mean Corpuscular HGB CONC 33.6 g/dL (32.0-36.0); Mean Corpuscular Hemoglobin 29.5 pg (27.0-31.0); Mean Corpuscular Volume 87.9 fl (78.0-98.0); Mean Platelet Volume 6.8 fL (7.4-10.4); Platelet Count 297 10x3/uL (130-400); RBC Distribution Width 12.5 % (11.5-14.5); Red Blood Cell (RBC) Count 4.51 mill/uL (4.20-5.40); White Blood Cell (WBC) Count 13.9 10x3/uL (4.8-10.8)
[2022-04-02 20:34] LABS: ALT (SGPT) 9 U/L (8-55); AST (SGOT) 13 U/L (5-34); Albumin 3.9 g/dL (3.4-4.8); Alkaline Phosphatase 90 U/L (40-110); Anion Gap 13 mmol/L (10-20); BUN (Urea Nitrogen) 11 mg/dL (9.8-20.1); Bilirubin, Total 0.3 mg/dL (0.2-1.2); Calc. Creatinine Clearance 0 mL/min (70-130); Carbon Dioxide 25 mmol/L (23-31); Chloride 102 mmol/L (98-107); Estimated GFR 53; Globulin 3.6 g/dL (2.4-3.5); Glucose 134 mg/dL (83-110); Potassium 3.7 mmol/L (3.5-5.1); Protein, Total 7.5 g/dL (5.8-8.1); Sodium 136 mmol/L (136-145)
[2022-04-02 21:51] LABS: Bacteria/HPF 4+ HPF (None Seen); Bilirubin Negative (Negative); Blood, Urine Negative (Negative); Clarity Clear (Clear); Glucose, Urine (Dipstick) Normal (Negative); Ketone, Urine Negative (Negative); Leukocyte 500 Leu/uL (Negative); Nitrite Negative (Negative); Protein, Urine (Dipstick) 20 mg/dL (Neg-Trace); RBC/HPF 0-3 HPF (0-3); Specific Gravity, Urine 1.024 (1.002-1.036); Squamous Epithelial 0-3 HPF (0-3); Urobilinogen Normal mg/dL (Less than 2); WBC/HPF Greater than 50 HPF (0-3)
[2022-04-02] MEDS ORDERED: cefTRIAXone\\ROCEPHIN 1 GM VIAL ONE (22:20)
[2022-04-02] MEDS ORDERED: Ipratropium/Albuterol 3 ML NEB ONE (22:23)
[2022-04-02] MEDS ORDERED: Ondansetron ODT 4 MG TAB SL PRN (22:30)
[2022-04-02] MEDS ORDERED: Acetaminophen 325 MG TAB PO PRN (22:30)
[2022-04-02] MEDS ORDERED: Ondansetron PF 4 MG/2 ML Vial IVP PRN (22:30)
[2022-04-02 23:43] VITALS: BMI 23.8
[2022-04-03] MEDS ORDERED: HYDROcodone/Acetaminophen 5/325 mg Tablet PO PRN (00:35)
[2022-04-03] MEDS ORDERED: Guaifenesin DM 100-10/5 ML UDCUP PO PRN (01:23)
[2022-04-03] MEDS ORDERED: Loperamide HCl 2 MG CAP PO PRN (01:31)
[2022-04-03] MEDS ORDERED: Ipratropium/Albuterol 3 ML NEB NEB PRN (01:35)
[2022-04-03] MEDS ORDERED: Sodium Chloride 0.9% 1,000 ML IV SCH (02:15)
[2022-04-03 03:41] LABS: SARS-CoV-2 NAA Rapid Test Not Detected (NotDetected)
[2022-04-03 07:15] LABS: #Lymphocytes 2.4 thou/uL (1.20-3.40); #Neutrophils 8.4 thou/uL (1.40-6.50); %Basophils 0.4 % (0.0-1.0); %Eosinophils 0.2 % (0.0-10.0); %Lymphocytes 20.2 % (21.0-51.0); %Monocytes 8.2 % (0.0-10.0); %Neutrophils 70.9 % (42.0-75.0); Hemoglobin 11.3 g/dL (12.0-16.0); Mean Corpuscular HGB CONC 32.5 g/dL (32.0-36.0); Mean Corpuscular Hemoglobin 28.8 pg (27.0-31.0); Mean Corpuscular Volume 88.5 fl (78.0-98.0); Mean Platelet Volume 7.1 fL (7.4-10.4); Platelet Count 234 10x3/uL (130-400); RBC Distribution Width 12.6 % (11.5-14.5); Red Blood Cell (RBC) Count 3.91 mill/uL (4.20-5.40); White Blood Cell (WBC) Count 11.9 10x3/uL (4.8-10.8)
[2022-04-03 07:41] LABS: Anion Gap 11 mmol/L (10-20); BUN (Urea Nitrogen) 11 mg/dL (9.8-20.1); Calc. Creatinine Clearance 39 mL/min (70-130); Calcium 8.7 mg/dL (7.8-10.44); Carbon Dioxide 25 mmol/L (23-31); Chloride 105 mmol/L (98-107); Estimated GFR 71; Glucose 97 mg/dL (83-110); Potassium 3.8 mmol/L (3.5-5.1); Sodium 137 mmol/L (136-145)
[2022-04-03] MEDS ORDERED: guaiFENesin ER 600 MG TAB PO SCH (14:15)
[2022-04-03] MEDS: Donepezil HCl 5 MG TAB PO SCH (14:29)
[2022-04-03] MEDS: guaiFENesin ER 600 MG TAB PO SCH (21:40)
[2022-04-03] MEDS ORDERED: cefTRIAXone\\ROCEPHIN 1 GM in Sodium Chloride 0.9% 100 ML IVPB SCH (22:00)
[2022-04-04] MEDS: guaiFENesin ER 600 MG TAB PO SCH (08:22)
[2022-04-04] MEDS: Donepezil HCl 5 MG TAB PO SCH (08:22)
[2022-04-04 08:51] LABS: #Basophils 0.1 thou/uL (0.0-0.2); #Eosinphils 0.1 thou/uL (0.0-0.7); #Lymphocytes 1.9 thou/uL (1.20-3.40); #Neutrophils 7.3 thou/uL (1.40-6.50); %Basophils 0.7 % (0.0-1.0); %Eosinophils 1.4 % (0.0-10.0); %Lymphocytes 18.7 % (21.0-51.0); %Monocytes 9.2 % (0.0-10.0); Hemoglobin 12.3 g/dL (12.0-16.0); Mean Corpuscular HGB CONC 33.4 g/dL (32.0-36.0); Mean Corpuscular Hemoglobin 29.6 pg (27.0-31.0); Mean Corpuscular Volume 88.7 fl (78.0-98.0); Mean Platelet Volume 7.3 fL (7.4-10.4); Platelet Count 255 10x3/uL (130-400); RBC Distribution Width 12.4 % (11.5-14.5); Red Blood Cell (RBC) Count 4.16 mill/uL (4.20-5.40); White Blood Cell (WBC) Count 10.4 10x3/uL (4.8-10.8)
[2022-04-04 12:57] VITALS: BP 150/72; TEMP 98
== END 2022-04-04 12:36 ==
LOC: ERS 19:13 → T4-B 22:20
PROVIDERS: ADMIT Internal Medicine; ATTEND Internal Medicine
DX: N39.0 Urinary tract infection, site not specified (principal); B96.20 Unspecified Escherichia coli [E. coli] as the cause of diseases classified elsewhere; R41.0 Disorientation, unspecified; G30.9 Alzheimer's disease, unspecified; F02.80 Dementia in other diseases classified elsewhere, unspecified severity, without behavioral disturbance, psychotic disturbance, mood disturbance, and anxiety; I10 Essential (primary) hypertension; E78.5 Hyperlipidemia, unspecified; J44.9 Chronic obstructive pulmonary disease, unspecified; K21.9 Gastro-esophageal reflux disease without esophagitis; K58.9 Irritable bowel syndrome, unspecified; Z86.16 Personal history of COVID-19; Z16.23 Resistance to quinolones and fluoroquinolones; Z16.29 Resistance to other single specified antibiotic; Z79.82 Long term (current) use of aspirin; Z79.899 Other long term (current) drug therapy; Z88.0 Allergy status to penicillin; Z91.018 Allergy to other foods; Z20.822 Contact with and (suspected) exposure to COVID-19
CPT/HCPCS: 0240U; 70450; 71045; 80048; 80053; 82962; 84484; 85025 ×3; 87077; 87086; 87186; 93005; 94640 ×2; 96374; 96376; 99285; G0378 ×4; 36415; 36416; 81003; 81015; J0696; J3490; J7050; J7620